=== PATIENT | male | born 2000 | race African-American/Black ===

== ENCOUNTER 2018-12-01 12:29 | Emergency (ER) | payer BC ==
[~2018-12-01] VITALS: Ht 182.9 cm; Wt 90.7 kg
[2018-12-01 12:35] VITALS: BP 160/89
[2018-12-01] MEDS ORDERED: IBUPROFEN 400 MG TABLET. PO ONE (13:15)
[2018-12-01] MEDS ORDERED: HYDROcodone/APAP 5/325MG 1 TAB TABLET PO ONE (13:15)
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
--- NOTE | 2018-12-01 13:35 | RAD ---
EXAM: 1. PA, oblique and lateral views of the left hand 2. PA, oblique and lateral views of the left wrist DATE: 12/01/2018 1:14 PM INDICATION: COMPARISON: No Prior FINDINGS: Transverse fracture through the midshaft of the middle finger metacarpal in mild apex dorsal angulation. Marked overlying soft tissue swelling is seen. Joint spaces are preserved without significant degenerative/proliferative change. IMPRESSION: Transverse fracture through the midshaft of the middle finger metacarpal in mild apex dorsal angulation. Electronically signed by: Mario Alberto Aguirre MD (12/01/2018 1:32 PM) [email or web address]
[2018-12-01] MEDS ORDERED: IBUP-1007 PO (14:12)
[2018-12-01] MEDS ORDERED: HYDR-3164 PO (14:12)
[2018-12-01] MEDS ORDERED: NEOMY/BACITR/POLYMYXIN OINT PACKET. TP ONE ×2 (14:36→15:30)
== END 2018-12-01 15:39 | disposition home or self-care (01) ==
LOC: ER 12:29
DX: S62.393A Other fracture of third metacarpal bone, left hand, initial encounter for closed fracture (principal); W22.01XA Walked into wall, initial encounter; Y93.89 Activity, other specified; Y92.89 Other specified places as the place of occurrence of the external cause; Y99.8 Other external cause status
CPT/HCPCS: 29125; 73110; 73130; 99284-25